=== PATIENT | female | born 1955 | race Caucasian/White ===

== ENCOUNTER → 2017-10-23 13:44 | Outpatient (CLI) | payer OTHER, SELFPAY ==
[2017-10-23 15:20] LABS: Add Manual Diff / Slide Review NO; Basophils Percent Auto 0.9 % (0-2); Eosinophils Percent Auto 2.8 % (2-4); Hematocrit 38.3 % (36-46); Hemoglobin 12.9 g/dL (12.0-16.0); Lymphocytes Percent Auto 23.5 % (25-40); Mean Corpuscular HGB Conc 33.7 % (30-36); Mean Corpuscular Hemoglobin 28.5 PG (26-34); Mean Corpuscular Volume 84.4 fL (80-100); Monocytes Percent Auto 9.2 % (3-14); Neutrophils Absolute Auto 3900 /uL (3000-5900); Neutrophils Percent Auto 63.6 % (50-75); Platelet Count 307 X10^3/uL (150-400); Red Blood Cell Count 4.53 X10^6/uL (4.0-5.2); Red Cell Distribution Width 14.3 % (11.6-14.8); White Blood Cell Count 6.1 X10^3/uL (4.5-11.0)
[2017-10-23 15:32] LABS: Calcium 9.2 mg/dL (8.4-10.2); Estimated Glomerular Filt Rate > 60.0 mL/min (>60); Glucose 125 mg/dL (80-110); HEMOLYSIS 29 (0-50); Hemoglobin A1C% w Est Avg Glu 6.3 % (4.0-6.0); Potassium 4.2 mmol/L (3.4-5.1); Sodium 143 mmol/L (137-145)
[2017-10-23 15:41] LABS: Transferrin 225 mg/dL (206-381)
[2017-10-23 17:41] LABS: Appearance Urine UA CLOUDY; Bilirubin Urine UA NEGATIVE (NEGATIVE); Color Urine UA YELLOW; Glucose Urine UA NEGATIVE (NEGATIVE); Ketones Urine UA TRACE (NEGATIVE); Leukocyte Esterase Urine UA TRACE (NEGATIVE); Nitrite Urine UA NEGATIVE (NEGATIVE); Occult Blood Urine UA 1+ (NEGATIVE); Protein Urine UA NEGATIVE (NEGATIVE); Specific Gravity Urine UA 1.025 (1.000-1.035); Urobilinogen Urine UA 0.2 E.U./dL (0.2)
[2017-10-23 17:49] LABS: Bacteria Urine Many (>30); Mucus Urine 2+ (Negative); RBC Urine 5-10/HPF (0-5/HPF); Squamous Epithelial Cell Urine 10-30 /HPF; WBC Urine 10-30/HPF (0-5/HPF)
[2017-10-23 17:51] LABS: Culture Indicated Urine Cult Not Indicated; Urine Comments NOTE:
== END ==
PROVIDERS: PCP Nurse Practitioner Gerontology; Visit Provider Orthopaedic Surgery
DX: M25.561 Pain in right knee (principal); Z01.812 Encounter for preprocedural laboratory examination; R73.9 Hyperglycemia, unspecified; N39.0 Urinary tract infection, site not specified
CPT/HCPCS: 36415; 80048; 81001; 83036; 84466; 85025; 93005

== ENCOUNTER 2017-11-14 08:33 | Inpatient (IN) | payer OTHER, SELFPAY ==
[2017-10-25 13:35] VITALS: BMI 46.5
[2017-11-14] VITALS (15 sets, daily range): BP systolic 127–165; BP diastolic 65–90; PULSE 64–85; RESP 12–20; TEMP 35.7–37.1; O2SAT 90–98; BMI 46.4
[2017-11-14] MEDS: LACTATED RINGERS 1,000 ML 42 ML IV (09:20)
--- NOTE | 2017-11-14 10:14 | PM.PREOP ---
Pre-operative Note Interval Note Pre-op Check: History & Physical Reviewed by Physician and Changes
--- NOTE | 2017-11-14 10:14 | PM.OP.1 ---
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 Non-operative management has failed and the patient has requested total knee replacement. The risks, benefits and alternatives to surgery were discussed with the patient prior to proceeding. Risks discussed included, but were not limited to, failure to relieve pain, stiffness, infection, nerve damage, deep venous thrombosis, pulmonary embolism, stroke, coma, heart attack, permanent paralysis and , as well as the potential need for eventual revision of the prosthetic. Surgeon: Aren Lama Engineering Manager Electronics: Lissett Calles Anesthesia Type: General and Local Operative Notes Findings: Severe osteoarthritis of the lateral and patellofemoral joints. The prosthetics appeared well fixed. Closure Type: primary Specimen(s): none sent Implants & Drains: Implants used in this procedure were manufactured by the [employer] and [employer] and included the BCS II Journey total knee replacement with a size 6 Oxinium BCS II femur, a size 5 journey non porous tibial base plate, a 12 mm cross-linked polyethylene BCS II tibial insert and a 35 mm Padmini II oval patellar component. Applied: implant(s) Estimated Blood Loss (mL): 100 Blood products transfused: none Tourniquet time (min): 72 Procedure in detail: The patient was seen in the pre-operative area, where the patient identified the right knee as the operative site and this was marked with my initials. The patient received pre-operative antibiotics, and was taken to the operating room and placed on the operative table in the supine position. After satisfactory anesthesia, a methods time analyst out was performed. The right leg was encircled with a tourniquet about the proximal thigh, and the leg was prepared from the toes to the tourniquet with ChloroPrep in the usual fashion and draped through sterile drapes. The leg was elevated and exsanguinated with Eschmark bandage and the tourniquet inflated to 250 mmHg pressure. The knee was approached through an approximately 18 cm incision that included the previous scar and carried into the knee through a medial parapatellar arthrotomy. The anterior osteophytes and soft tissues were removed. The rotational landmarks of Hui's line and the transepicondylar axis were marked on the femur with electrocautery, and intramedullary guide holes for the femur and tibia were created. The distal femoral cut was made in 6 degrees of valgus using the intramedullary guide at the primary cut setting. This was accomplished by placing the guide pins prior to removal of the femoral prosthetic, removing the prosthetic and then making the cut. The proximal tibial cut was then made using the intramedullary guide, taking a skim cut from the surface left after removal of the tibial prosthetic. The anterior, posterior and chamfer cuts were then made. The posterior osteophytes and soft tissues were then removed. The posterior capsule was injected with part of a mixture of 50 ml 0.25% Marcaine mixed with 20 ml Exparel and 4 mg of morphine for post-operative pain control. The remainder of this mixture was injected into the capsule and subcutaneous tissues during cement curing. The tibia was prepared with the rotation set by an extra medullary guide. Trial tibial and femoral components were then placed and the intercondylar notch cut through the femoral trial. Range of motion was 0-130 degrees, with good stability throughout the range. The patella was then cut to accommodate the patellar prosthetic. There was no need for a lateral release. The trials were then removed. The bone was prepared with pulsatile lavage, and dried with a sponge. Cement was applied and the final prosthetics placed. Excess cement was removed during and after cement curing. After confirming there was no extruded cement posteriorly, the final tibial insert was placed. The knee was copiously irrigated and the tourniquet deflated. Hemostasis was obtained. The capsule was closed with interrupted # 2 polyester suture. The subcutaneous layer was closed with 3-0 Vicryl, and the skin with a running 3-0 V-Lock suture and SteriStrips. An Aquacel Ag dressing was applied and the patient was taken to recovery having tolerated the procedure well. Complications: none Condition: stable Disposition: PACU Plan for aftercare: The patient will be maintained on a standard total knee replacement protocol with weight bearing as tolerated. The patient will receive aspirin and sequential compression devices for DVT prophylaxis. The patient will be discharged home when safe for the home environment.
[2017-11-14] MEDS: MIDAZOLAM 2 MG/2 ML VIAL IV (10:45)
--- NOTE | 2017-11-14 10:47 | SUR.PREOP ---
After SURINDER Frausto spoke with pt, Midazolam given to pt. per Dr Herbert's instruction, pt then taken to OR by SURINDER Frausto
[2017-11-14] MEDS: CEFAZOLIN 2 GM/100 ML FROZ.PIGGY IV ×2 (10:50→20:00)
--- NOTE | 2017-11-14 11:39 | SUR.OPER ---
Supine on padded OR bed, head on pillow, arms secured on padded arm boards at <90 degrees abduction, legs uncrossed, safety belt at waste, tape over blanket over lower legs and hips.
[2017-11-14] MEDS: BUPIVACAINE 0.25% W/ EPI 50 ML VIAL INJ (11:44)
[2017-11-14] MEDS: BUPIVACAINE LIPOSOME 266 MG/20 ML VIAL INJ (11:44)
[2017-11-14] MEDS: MORPHINE 4 MG/ML INJ IV (11:45)
--- NOTE | 2017-11-14 13:09 | DI.RAD.S_ITS ---
PROCEDURE: XR KNEE RT 1TO2V INDICATIONS: 62 year-old female status post right knee arthroplasty. TECHNIQUE: 2 postoperative view(s) of the knee acquired. COMPARISON: None available. FINDINGS: Bones: Patient is status post knee joint arthroplasty. Hardware components are in expected positions. Visualized bony structures are intact. Soft tissues: Overlying postoperative changes are noted, including intra-articular fluid and gas. IMPRESSION: Status post right knee arthroplasty, with hardware components in expected positions. Dictated by: Jayce Kate M.D. on 11/14/2017 at 14:01 Approved by: Jayce Kate M.D. on 11/14/2017 at 14:01
[2017-11-14] MEDS: HYDROMORPHONE 2 MG INJ 0.25 MG IV ×2 (14:04→14:17)
[2017-11-14] MEDS: INSULIN REGULAR 100 UNIT/ML 3 ML VIAL SUBCUT (14:15)
[2017-11-14] MEDS: ONDANSETRON 4 MG ODT PO (16:00)
[2017-11-14] MEDS: OXYCODONE/ACETAMINOPHEN 5/325 TABLET 1 TAB PO ×2 (16:39→20:35)
[2017-11-14] MEDS: LACTATED RINGERS 1,000 ML 100 ML IV (16:40)
--- NOTE | 2017-11-14 17:54 | PC.NURSE ---
Pt arrived from PACU in stable post op condition. 96% RA. IV infusing into the RFA as per orders w/o incidence. Stewart wrap & aquacell dsg CDI. Assisted to BSc w/two assist and FWW. Pt oriented to room and call system. Call light w/in reach.
[2017-11-14] MEDS: ASPIRIN EC 81 MG TABLET PO (20:35)
[2017-11-15] MEDS: LACTATED RINGERS 1,000 ML 100 ML IV (01:48)
[2017-11-15] MEDS: OXYCODONE/ACETAMINOPHEN 5/325 TABLET 1 TAB PO ×4 (01:51→21:44)
[2017-11-15] MEDS: CEFAZOLIN 2 GM/100 ML FROZ.PIGGY IV (02:00)
[2017-11-15 06:09] LABS: Hemoglobin 11.9 g/dL (12.0-16.0)
[2017-11-15 06:40] VITALS: BP 138/69; PULSE 87; RESP 16; TEMP 36.9; O2SAT 93
[2017-11-15 07:48] VITALS: BP 143/77; PULSE 88; RESP 16; TEMP 37.1; O2SAT 94
[2017-11-15] MEDS: MELOXICAM 7.5 MG TABLET 15 MG PO (08:01)
[2017-11-15] MEDS: LOSARTAN 50 MG TABLET PO (08:01)
[2017-11-15] MEDS: ASPIRIN EC 81 MG TABLET PO ×2 (08:01→20:23)
[2017-11-15] MEDS: DOCUSATE 100 MG CAPSULE PO ×2 (08:01→20:22)
--- NOTE | 2017-11-15 08:22 | PM.PNPO.1 ---
Subjective Date Patient Seen: 11/15/17 Time Patient Seen: 08:23 Interval history: POD #1 status post right total knee arthroplasty with Dr. Lama. Her pain is well controlled with oxycodone, Tylenol, and meloxicam. She is taking aspirin for DVT prophylaxis. She has not been up with physical therapy yet. She had complaints of nausea yesterday but this has resolved. She has been getting up and using the commode. She has her physical therapy appointment set up in [place]. Her plan will be to DC home with her sister, and 2 sons. Exam Vital Signs (past 8 hours): Vital Signs - 8 hr 11/15/17 06:40 11/15/17 07:48 Temperature 98.4 F 98.7 F Pulse Rate 87 88 Respiratory Rate 16 16 Blood Pressure 138/69 H 143/77 H Pulse Oximetry 93 94 Pulse Oximetry 94 Oxygen Delivery Method Nasal Cannula Oxygen Flow Rate 2 Narrative Exam Narrative: Patient lying in bed in no acute distress. She is alert and oriented x3. Dressing on right knee is CDI, and leanne wrap in place. Calves are soft, compressible, and nontender bilaterally. Sensation intact to light touch throughout bilateral lower extremities. Pulses are symmetrical. She is able to actively dorsiflex and plantar flex. Objective Labs Result Diagrams: 11/15/17 05:55 Labs: Laboratory Results - last 24 hr 11/15/17 05:55 Hgb 11.9 L Hct 36.0 Assessment & Plan Post-op (1) Knee osteoarthritis: Current Visit: Yes Status: Acute (2) S/P total knee arthroplasty: Current Visit: Yes Status: Acute Postoperative Procedures Operation Date: 11/14/17 10:45 Actual Procedures Side Surgeon p Uni Knee Revision to Total Knee Arthroplasty Revision Right Aren Lama MD POD #1 status post right total knee arthroplasty with Dr. Lama. She has not been up ambulating with PT yet. She will get up and ambulate with PT today. She has outpatient physical therapy set up. Her sister and 2 sons will be staying with her. Pain is well controlled with oxycodone, Tylenol, and meloxicam. Continue ASA for DVT prophylaxis. Plan is possible discharge this afternoon if she is mobilizing safely, and continued pain control. Time Spent With Patient less than 15 minutes Quality VTE Deep Vein Thrombosis/Pulmonary Embolism Present on Admission: No
[2017-11-15 12:03] VITALS: BP 144/73; PULSE 85; RESP 16; TEMP 37.1; O2SAT 95
--- NOTE | 2017-11-15 12:18 | PT.IIE ---
Current Diagnoses Bilateral primary osteoarthritis of knee (11/14/17) Unilateral primary osteoarthritis, unspecified knee (11/14/17) Presence of right artificial knee joint (11/14/17) Presence of left artificial knee joint (11/14/17) Presence of unspecified artificial knee joint (11/14/17) Surgery Performed Operation Date: 11/14/17 10:45 Actual Procedures p Uni Knee Revision to Total Knee Arthroplasty Revision(Right) - Aren Lmaa MD Surgical History (Last Reviewed 11/14/17 @ 16:52 by Rubin Burciaga, PT, [place]) H/O umbilical hernia repair (Acute) History of cataract surgery (Acute) History of total knee arthroplasty (Acute) Personal history of spine surgery (Acute) Medical History (Last Reviewed 11/14/17 @ 16:52 by Rubin Burciaga, PT, [place]) Diabetes mellitus (Acute) Heartburn (Acute) History of prosthetic unicompartmental arthroplasty of right knee (Acute) Hypertension (Acute) Impairment of balance (Acute) Osteoarthritis of both hips (Acute) Osteoarthritis of both knees (Acute) Pain (Acute) Postmenopausal (Acute) Scoliosis (Acute) Physical Therapy Inpatient Evaluation/Re-Eval M1 PT/OT-IP Prior Functional Status Start: 11/14/17 17:13 Freq: NEEDED Status: Active Protocol: Document 11/15/17 12:06 AB (Rec: 11/15/17 12:18 AB [id number]) Medical Review Prior Functional Status Medical History Reviewed Yes Mobility and Gait pt stated that she is modified independent with all mobilities and ambulation using SPC Social History Household Members children Living Arrangements House Number of Floors (Floors) One Floor Number of Stairs To Enter/Railing? 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 Additional Social History Comment pt works in the kitchen in [email or web address] M2 PT-IP Current Condition Start: 11/14/17 17:13 Freq: NEEDED Status: Active Protocol: Document 11/15/17 12:06 AB (Rec: 11/15/17 12:18 AB [id number]) Physical Therapy Current Condition Current Condition Evaluation Date 11/15/17 Treatment Diagnosis s/p R TKA Onset Date 11/14/17 Weight Bearing Status Weight Bearing Status Weight Bear as Tolerated M3 PT-IP Subjective Start: 11/14/17 17:13 Freq: NEEDED Status: Active Protocol: Document 11/15/17 12:06 AB (Rec: 11/15/17 12:18 AB [id number]) Subjective Physical Therapy Visit Type Type Initial Evaluation Visit Start Time 10:08 Visit Stop Time 10:42 Total Visit Minutes 34 Number of FRUIT RANCHER Visits 0 Physical Therapy Visit Comments Patient Comments i don't think i can stand up Therapy Pain Assessment Pain When Pain Assessed At Rest Pain Present Pain Present Pain Reported Location Right Knee Intensity 4 Scale Used Numeric (1 - 10) Pain Management Techniques Timing of Activity with Medications M4 PT-IP Mobility and Gait Start: 11/14/17 17:13 Freq: NEEDED Status: Active Protocol: Document 11/15/17 12:06 AB (Rec: 11/15/17 12:18 AB [id number]) PT-Bed Mobility Assessment Supine to Sit Supine to Sit Maximum Assistance Scooting Scooting to Edge of Bed Maximum Assistance PT-Transfer Assessment Sit to and From Stand Sit to and from Stand Maximum Assistance Equipment Transfer Assistive Device Gait Belt Front Wheeled Walker Orthotic/Prosthetic Devices or Brace: No Transfers Transfer Destination Chair Transfer Technique Stand Step Pivot Transfer Ability Level of Assist Moderate Assistance Gait Assessment Gait Gait Assistance Required: Moderate Assistance Distance (Feet) (feet) 12 Able to Maintain Weight Bearing Status Yes During Gait Assistive Devices Assistive Device Gait Belt Front Wheeled Walker Gait Deviations General Gait Pattern Antalgic Decreased Stride Length Decreased Feet Clearance Factors Limiting Gait Function Factors Limiting Gait Function Decreased Activity Tolerance Decreased Strength Pain Poor Balance Poor Safety Awareness PT-Balance Assessment Sitting Balance and Reactions Static Sitting Balance Ability Good Dynamic Sitting Balance Ability Good Standing Balance and Reactions Static Standing Balance Ability Fair Dynamic Standing Balance Ability Poor M5 PT-IP Objective Assessments Start: 11/14/17 17:13 Freq: NEEDED Status: Active Protocol: Document 11/15/17 12:06 AB (Rec: 11/15/17 12:18 AB [id number]) Orientation Orientation/Cognition Level of Alertness Alert Orientation Name Age Birthday Month Date Year Day of Week Place Situation Safety Awareness Understands Safety Issues Gross Range of Motion Lower Extremity ROM Assessment Right Impaired Strength Lower Extremity Strength Assessment Bilaterally Impaired Knee R quads: 3-/5 M6 PT-IP Treatment Start: 11/14/17 17:13 Freq: NEEDED Status: Active Protocol: Document 11/15/17 12:06 AB (Rec: 11/15/17 12:18 AB [id number]) Physical Therapy Treatment Education Education Provided Precautions Weight Bearing Status Post-Op Packet Safety M7 PT-IP Assessment and Plan Start: 11/14/17 17:13 Freq: NEEDED Status: Active Protocol: Document 11/15/17 12:06 AB (Rec: 11/15/17 12:18 AB [id number]) PT Summary Assessment and Plan Potential Rehabilitation Potential Fair Status of Condition at Evaluation Evolving Summary Impairments Pain ROM Strength Balance Coordination Sensation Bed Mobility Transfers Gait Activity Tolerance Assessment Summary Pt requiring mod to max A with mobility at this time. pt will likely progress during hospital stay. will conduct caregiver training and stair training when appropriate. Goals Bed Mobility Goal Standby Assistance Transfer Goal Standby Assistance Gait Goal Standby Assistance Gait Distance 100 Other Goals up/down 2 step using fWW Days to Meet Goals 3 Frequency of Treatment Frequency Of Treatment Twice a Day Treatment Plan Physical Therapy Treatment Plan Bed Mobility Training Transfer Training Gait Training Therapeutic Exercise Balance Retraining Post Op Education Discharge Planning Hot or Cold Pack Neuromuscular Re-ed Coordination Retraining Manual Therapy Other Recommendations and Next Treatment bed mobility, sit<>stand, Focus ambulation, stair climbing Recommendations To Nursing Amount of Assist Needed 1 Person Assist Discharge Recommendations PT Discharge Recommendations Home with Assistance Outpatient PT Equipment Needed for Home Before FWW: pt will ask her friend to Discharge get her one Provider Visit Care Team Role Provider Type DAREN Ignacio Primary Care Provider Non-Staff Specialty: Medical Aren Lama MD Admit Provider Physician Attending Provider Specialty: Orthopedic Surgery
--- NOTE | 2017-11-15 12:24 | PC.NURSE ---
Pt is A&ox3. She was given 1 Percocet and states that her pain level down to a 2/10. She is groggy this morning but easily arousable. R.knee dressing is aquacel with leanne wrap applied over top. CMS wnl and ppx2. Pt has feeling to leg from hip down to feet. Slight 1+ edema to r. extremity. Pt is a one person assist with P.T. She is doing well with ambulation when moving and using walker, but having more of a problem getting up out of bed to the walker. VSS, blood sugar this morning 180s. Pt ate well at breakfast s any nausea. Sitting up in chair, now visiting with her sister. Noon- Pts blood sugar 126 at lunch time. Pt sitting up in chair comfortably and states that she has minimal pain and will be ready for more percocet around 1300.
--- NOTE | 2017-11-15 15:00 | CM.DANOTE ---
DCP: assessment: Case received, EMR reviewed and met with pt. Introduced self and role. She was just finishing her second PT session with Jenni and agreed to have most of the discussion re her d/c plan go to her sister Audrey, at bedside. Pt is a 62 year old feamle who admitted yesterday for a planned R TKA revision. Surgeon: Dr. Kelby Odonnell: Cameron Cline DCP template completed with the information currently available at this time. Pt's sister is here from [place] and will stay until Monday. She is in process of looking for a FWW at places in [place] that offer borrowed dme (list provided by therapy dept). Thus far she has not found one...pt confirms she would like one from the therapy consignment closet if she does not have one by tomorrow. Jenni also notes pt would beneft from an OT eval if order can be obtained from ortho team to better support pt's plan for home. Agreed to follow up in morning iwth rounding ortho re walker and OT. P: at this point PT notes pt is making progress toward goal for home d/c but does need assist. Will be following
[2017-11-15 15:30] VITALS: BP 134/57; PULSE 88; RESP 16; TEMP 37.7; O2SAT 94
--- NOTE | 2017-11-15 18:47 | PC.NURSE ---
Pt c/o pain 1-07/29, refusing the need for additional pain meds, stating the 1 PRN percocet is working just fine. Stewart wrap and aquacel CDI, CMS intact, +PPs, encouraged ankle waves while pt OOB in chair. 94% RA, denies SOB, encouraged use of I.S. and performed pt teaching on how to use the I.S., pt verbalized and demonstrated understanding. Denies nausea and flatus, BT's hypoactive. Calling appropriately and making needs known to staff. Call light in reach.
[2017-11-15 20:05] VITALS: BP 136/60; PULSE 97; RESP 16; TEMP 37.4; O2SAT 94
[2017-11-15] MEDS: SODIUM CHLORIDE 0.9% FLUSH 10 ML IV (21:45)
[2017-11-16 00:30] VITALS: BP 140/61; PULSE 102; RESP 20; TEMP 37.7; O2SAT 94
[2017-11-16] MEDS: hydrOXYzine pamoate 25 MG CAPSULE PO (00:48)
[2017-11-16 01:25] VITALS: TEMP 37.4
[2017-11-16 05:15] VITALS: BP 121/63; PULSE 86; RESP 16; TEMP 37.2; O2SAT 92
--- NOTE | 2017-11-16 07:36 | PM.DS.1 ---
History of Present Illness Chief complaint: revision total rt knee arthroplasty 91994 Narrative: Yesenia Stout is a 62 year old female . Pain is [id number]. Denies fever chills. Ambulating in his room yesterday with physical therapy. She has 1 small step into her home. She has family home to assist her. Patient feels ready to be discharged home today. Discharge Providers Date of admission: 11/14/17 08:33 Primary care physician: DAREN Ignacio Consults: 11/14/17 16:14 Consult to Discharge Planning Routine Comment: Consult to Physical Therapy Evaluate & Treat Comment: Physician Instructions: postop TKA protocol Discharge provider: Terry Tirado PA-C Summary Discharge Diagnosis: Status post right total knee arthroplasty. Hospital Course: Patient admitted to the hospital for failed right unicompartment arthroplasty. Patient consented for revision of failed right unicompartment arthroplasty to right total knee arthroplasty. Patient taken to the operating room underwent above-mentioned procedure. Patient back in her room recovering well and is in stable condition. Status at Discharge Functional status at discharge: uses cane/walker Overall status at discharge: patient is progressing back to baseline Time Spent with Patient Less than 30 minutes Exam Vital Signs (past 8 hours): Vital Signs - 8 hr 11/16/17 00:30 11/16/17 01:25 11/16/17 05:15 Temperature 99.8 F H 99.3 F 99.0 F Pulse Rate 102 H 86 Respiratory Rate 20 16 Blood Pressure 140/61 H 121/63 H Pulse Oximetry 94 92 Pulse Oximetry 92 Oxygen Delivery Method Room Air Oxygen Flow Rate 0 Narrative Exam Narrative: 62-year-old female resting comfortably in bed in no apparent distress. Right knee dressing is clean, dry and intact. Neurovascular status is intact to the right distal lower extremity. Objective Labs Result Diagrams: 11/15/17 05:55 Discharge Plan Discharge Plan Patient Disposition: Home, Self-Care Discharge comment: DC home today after PT Patient already has meds for home use. She will continue aspirin, Tylenol, Mobic, oxycodone, Vistaril. Discharge Med Rec/Prescriptions Prescriptions: New aspirin 81 mg Tablet,Delayed Release (Dr/Ec) 81 mg PO BID Qty: 60 RF: 0 hydroxyzine pamoate 25 mg Capsule 25 mg PO Q6HR PRN (Reason: Nausea) Qty: 30 RF: 0 Continue losartan 50 mg Tablet 50 mg PO DAILY RF: 0 meloxicam 15 mg Tablet 15 mg PO DAILY RF: 0 cholecalciferol (vitamin D3) [Vitamin D3] 1,000 unit Capsule 1,000 unit PO DAILY RF: 0 acetaminophen [Tylenol Arthritis Pain] 650 mg Tablet Extended Release 1,300 mg PO BID PRN (Reason: pain) RF: 0 glucosamine HCl 1,500 mg Tablet 3,000 mg PO DAILY RF: 0 Follow up/Referrals: Jennifer Jane ARNP [Primary Care Provider] - Aren Lama MD [Physician] - (SNO in 5-7 days) Provider Discharge Instructions Diet: Diet as Tolerated Activity: Weightbearing as tolerated, ankle pumps, heel slides Wound Care Report to your healthcare provider any signs of infection, such as:: chills, fever, increased pain and unusual drainage Dressing: The dressing in place until follow-up appointment in 2 weeks Visit Report/Discharge Packet Visit Report Forms: Stroke Signs & Symptoms Discharge Data Primary Care Provider: Jennifer Jane Attending Provider: Aren Lama Admit Date/Time: 11/14/17 08:33 Quality VTE Deep Vein Thrombosis/Pulmonary Embolism Present on Admission: No
--- NOTE | 2017-11-16 07:41 | P.DS_ITS ---
History of Present Illness Chief complaint: revision total rt knee arthroplasty 60640 Narrative: Yesenia Stout is a 62 year old female . Pain is mild-to- moderate. Denies fever chills. Ambulating in his room yesterday with physical therapy. She has 1 small step into her home. She has family home to assist her. Patient feels ready to be discharged home today. Discharge Providers Date of admission: 11/14/17 08:33 Primary care physician: DAREN Ignacio Consults: 11/14/17 16:14 Consult to Discharge Planning Routine Comment: Consult to Physical Therapy Evaluate & Treat Comment: Physician Instructions: postop TKA protocol Discharge provider: Terry Tirado PA-C Summary Discharge Diagnosis: Status post right total knee arthroplasty. Hospital Course: Patient admitted to the hospital for failed right unicompartment arthroplasty. Patient consented for revision of failed right unicompartment arthroplasty to right total knee arthroplasty. Patient taken to the operating room underwent above-mentioned procedure. Patient back in her room recovering well and is in stable condition. Status at Discharge Functional status at discharge: uses cane/walker Overall status at discharge: patient is progressing back to baseline Time Spent with Patient Less than 30 minutes Exam Vital Signs (past 8 hours): Vital Signs - 8 hr 3 11/16/17 00:30 11/16/17 01:25 11/16/17 05:15 Temperature 99.8 F H 99.3 F 99.0 F Pulse Rate 102 H 86 Respiratory Rate 20 16 Blood Pressure 140/61 H 121/63 H Pulse Oximetry 94 92 Pulse Oximetry 92 Oxygen Delivery Method Room Air Oxygen Flow Rate 0 Narrative Exam Narrative: 62-year-old female resting comfortably in bed in no apparent distress. Right knee dressing is clean, dry and intact. Neurovascular status is intact to the right distal lower extremity. Objective Labs Result Diagrams: 11/15/17 05:55 Discharge Plan Discharge Plan Patient Disposition: Home, Self-Care Discharge comment: DC home today after PT Patient already has meds for home use. She will continue aspirin, Tylenol, Mobic, oxycodone, Vistaril. Discharge Med Rec/Prescriptions Prescriptions: New aspirin 81 mg Tablet,Delayed Release (Dr/Ec) 81 mg PO BID Qty: 60 RF: 0 hydroxyzine pamoate 25 mg Capsule 25 mg PO Q6HR PRN (Reason: Nausea) Qty: 30 RF: 0 Continue losartan 50 mg Tablet 50 mg PO DAILY RF: 0 meloxicam 15 mg Tablet 15 mg PO DAILY RF: 0 cholecalciferol (vitamin D3) [Vitamin D3] 1,000 unit Capsule 1,000 unit PO DAILY RF: 0 acetaminophen [Tylenol Arthritis Pain] 650 mg Tablet Extended Release 1,300 mg PO BID PRN (Reason: pain) RF: 0 glucosamine HCl 1,500 mg Tablet 3,000 mg PO DAILY RF: 0 Follow up/Referrals: Jennifer Jane ARNP [Primary Care Provider] - Aren Lama MD [Physician] - (SNO in 5-7 days) Provider Discharge Instructions Diet: Diet as Tolerated Activity: Weightbearing as tolerated, ankle pumps, heel slides Wound Care Report to your healthcare provider any signs of infection, such as:: chills, fever, increased pain and unusual drainage Dressing: The dressing in place until follow-up appointment in 2 weeks Visit Report/Discharge Packet Visit Report Forms: Stroke Signs & Symptoms Discharge Data Primary Care Provider: Jennifer Jane Attending Provider: Aren Lama Admit Date/Time: 11/14/17 08:33 Quality VTE Deep Vein Thrombosis/Pulmonary Embolism Present on Admission: No
--- NOTE | 2017-11-16 08:26 | CM.DPC ---
DCP: continued: katherine Tirado was here this morning and has d/c'd pt to home today. Spoke with katherine lopez ? OT prior to d/c. She agrees this will be helpful and is ordering same. Checked in with pt. She confirms she is comfortable with the d/c to home today. Her sister was able to obtain a FWW and is bringing it with her this morning to hospital. She will be taking pt home after therapy tx today. P: home, today, outpt PT and family support.
[2017-11-16 08:30] VITALS: BP 134/68; PULSE 91; RESP 16; TEMP 37.5; O2SAT 97
[2017-11-16] MEDS: OXYCODONE/ACETAMINOPHEN 5/325 TABLET 1 TAB PO ×2 (08:45→12:43)
[2017-11-16] MEDS: DOCUSATE 100 MG CAPSULE PO (08:46)
[2017-11-16] MEDS: ASPIRIN EC 81 MG TABLET PO (08:46)
[2017-11-16] MEDS: LOSARTAN 50 MG TABLET PO (08:47)
[2017-11-16] MEDS: MELOXICAM 7.5 MG TABLET 15 MG PO (08:47)
[2017-11-16] MEDS: SODIUM CHLORIDE 0.9% FLUSH 10 ML IV (08:47)
[2017-11-16 09:30] VITALS: TEMP 37.5
--- NOTE | 2017-11-16 11:50 | PT.IPTN ---
Current Diagnoses Bilateral primary osteoarthritis of knee (11/14/17) Unilateral primary osteoarthritis, unspecified knee (11/14/17) Presence of right artificial knee joint (11/14/17) Presence of left artificial knee joint (11/14/17) Presence of unspecified artificial knee joint (11/14/17) Surgery Performed Operation Date: 11/14/17 10:45 Actual Procedures p Uni Knee Revision to Total Knee Arthroplasty Revision(Right) - Aren Lama MD Physical Therapy Treatment Note M2 PT-IP Current Condition Start: 11/14/17 17:13 Freq: NEEDED Status: Active Protocol: Document 11/15/17 12:06 AB (Rec: 11/15/17 12:18 AB [id number]) Physical Therapy Current Condition Current Condition Evaluation Date 11/15/17 Treatment Diagnosis s/p R TKA Onset Date 11/14/17 Weight Bearing Status Weight Bearing Status Weight Bear as Tolerated M3 PT-IP Subjective Start: 11/14/17 17:13 Freq: NEEDED Status: Active Protocol: Document 11/16/17 10:45 GGD (Rec: 11/16/17 11:49 GGD [id number]) Subjective Physical Therapy Visit Type Type Treatment Note Visit Start Time 10:15 Visit Stop Time 10:45 Total Visit Minutes 30 Number of FELT HANGER Visits 1 Physical Therapy Visit Comments Patient Comments Pt states she feels ready to go home. Therapy Pain Assessment Pain When Pain Assessed At Rest Pain Present Pain Present Pain Reported Location Right Knee Intensity 3 Scale Used Numeric (1 - 10) Pain Management Techniques Timing of Activity with Medications M4 PT-IP Mobility and Gait Start: 11/14/17 17:13 Freq: NEEDED Status: Active Protocol: Document 11/16/17 10:45 GGD (Rec: 11/16/17 11:49 GGD [id number]) PT-Transfer Assessment Sit to and From Stand Sit to and from Stand Minimal Assistance Equipment Transfer Assistive Device Gait Belt Front Wheeled Walker Transfers Transfer Destination Chair Toilet Transfer Ability Level of Assist Contact Guard Assistance Minimal Assistance Use of Upper Extremities Gait Assessment Gait Gait Assistance Required: Contact Guard Assist Distance (Feet) (feet) 60 Assistive Devices Assistive Device Gait Belt Front Wheeled Walker Orthotic/Prosthetic Devices or Brace: No Gait Deviations General Gait Pattern Antalgic Decreased Stride Length Decreased Feet Clearance Step-to Gait Factors Limiting Gait Function Factors Limiting Gait Function Decreased Activity Tolerance Decreased Strength Limited Range of Motion Pain Poor Balance Poor Safety Awareness M5 PT-IP Objective Assessments Start: 11/14/17 17:13 Freq: NEEDED Status: Active Protocol: Document 11/15/17 12:06 AB (Rec: 11/15/17 12:18 AB [id number]) Orientation Orientation/Cognition Level of Alertness Alert Orientation Name Age Birthday Month Date Year Day of Week Place Situation Safety Awareness Understands Safety Issues Gross Range of Motion Lower Extremity ROM Assessment Right Impaired Strength Lower Extremity Strength Assessment Bilaterally Impaired Knee R quads: 3-/5 M6 PT-IP Treatment Start: 11/14/17 17:13 Freq: NEEDED Status: Active Protocol: Document 11/16/17 10:45 GGD (Rec: 11/16/17 11:49 GGD [id number]) Physical Therapy Treatment Exercises Exercises Ankle Pumps Quad Sets Seated Knee Flexion/Extension M7 PT-IP Assessment and Plan Start: 11/14/17 17:13 Freq: NEEDED Status: Active Protocol: Document 11/16/17 10:45 GGD (Rec: 11/16/17 11:49 GGD [id number]) PT Summary Assessment and Plan Summary Assessment Summary Pt improving with mobility. She improved with ambulation. She did need assist for sit to stand from toilet. Frequency of Treatment Frequency Of Treatment Twice a Day Treatment Plan Other Recommendations and Next Treatment bed mobility, sit<>stand, Focus ambulation Recommendations To Nursing Amount of Assist Needed 1 Person Assist Discharge Recommendations PT Discharge Recommendations Home with Assistance Outpatient PT Equipment Needed for Home Before She does have a FWW. Discharge
--- NOTE | 2017-11-16 12:08 | OT.IP.EVAL ---
Current Diagnoses Bilateral primary osteoarthritis of knee (11/14/17) Unilateral primary osteoarthritis, unspecified knee (11/14/17) Presence of right artificial knee joint (11/14/17) Presence of left artificial knee joint (11/14/17) Presence of unspecified artificial knee joint (11/14/17) Surgery Performed Operation Date: 11/14/17 10:45 Actual Procedures p Uni Knee Revision to Total Knee Arthroplasty Revision(Right) - Aren Lama MD Past Medical History (Last Reviewed 11/14/17 @ 16:52 by Rubin Burciaga, PT, [place]) Diabetes mellitus (Acute) Heartburn (Acute) History of prosthetic unicompartmental arthroplasty of right knee (Acute) Hypertension (Acute) Impairment of balance (Acute) Osteoarthritis of both hips (Acute) Osteoarthritis of both knees (Acute) Pain (Acute) Postmenopausal (Acute) Scoliosis (Acute) Surgical History (Last Reviewed 11/14/17 @ 16:52 by Rubin Burciaga, PT, [place]) H/O umbilical hernia repair (Acute) History of cataract surgery (Acute) History of total knee arthroplasty (Acute) Personal history of spine surgery (Acute) Occupational Therapy Inpatient Evaluation/Re-Eval M1 PT/OT-IP Prior Functional Status Start: 11/14/17 17:13 Freq: NEEDED Status: Active Protocol: Document 11/16/17 11:51 [facility] (Rec: 11/16/17 12:06 [facility] [id number]) Medical Review Prior Functional Status Medical History Reviewed Yes Diet/Fluid Consistency Regular Mobility and Gait pt stated that she is modified independent with all mobilities and ambulation using SPC Social History Household Members children Living Arrangements House Home Environment Walk in Shower Home Equipment Front Wheel Walker Hand Held Shower Grab Bars In Shower M2 OT-IP Current Condition Start: 11/16/17 11:50 Freq: Status: Active Protocol: Document 11/16/17 11:51 [facility] (Rec: 11/16/17 12:06 [facility] [id number]) Occupational Therapy Current Condition Current Condition Evaluation Date 11/16/17 Treatment Diagnosis Right UNi knee revision to R TKA Weight Bearing Status Weight Bearing Status Weight Bear as Tolerated M3 OT- IP Subjective and Pain Start: 11/16/17 11:50 Freq: Status: Active Protocol: Document 11/16/17 11:51 [facility] (Rec: 11/16/17 12:06 [facility] [id number]) OT- Subjective Occupational Therapy Visit Type Type Initial Evaluation Visit Start Time 11:15 Visit Stop Time 11:35 Total Visit Minutes 20 Occupational Therapy Visit Comments Patient/Caregiver Goals Pt feels ready to go home. OT Pain Assessment Pain When Pain Assessed At Rest Pain Present Pain Present Denied Pain M4 OT- IP ADL's Start: 11/16/17 11:50 Freq: Status: Active Protocol: Document 11/16/17 11:51 [facility] (Rec: 11/16/17 12:06 [facility] [id number]) OT ADL-Dressing General Eval Upper Body Dressing Ability Standby Assistance Lower Body Dressing Ability Minimal Assistance Areas Needing Assistance Retrieving/Set-up of Clothing Socks Shoes Comments OT Dressing Comments Pt states just wears slippers at home and able to reach down low to deangelo underwear and pants. Pt needing assist with heel of shoes up. Educated on AED that hydrography teacher maybe beneficial for pt. M6 OT- IP Functional Cognition Start: 11/16/17 11:50 Freq: Status: Active Protocol: Document 11/16/17 11:51 [facility] (Rec: 11/16/17 12:06 [facility] [id number]) Cognitive Factors Limiting Selfcare Function Cognitive Ability Level of Alertness Alert Patient Orientation Name Month Date Year Place Situation Attention Span Ability Capable of Focused Attention Capable of Sustained Attention Ability to Follow Commands Able to Follow Multi-Step Commands Memory Description No Deficits Noted Safety Awareness No Deficits Noted OT- Vision and Hearing OT- Hearing Assessment OT- Hearing Assessment WFL M7 OT- IP Mobility and Balance Start: 11/16/17 11:50 Freq: Status: Active Protocol: Document 11/16/17 11:51 [facility] (Rec: 11/16/17 12:06 [facility] [id number]) OT-Transfer Assessment Sit to and From Stand Sit to and from Stand Minimal Assistance Comments Mobility Comments IRISH to stand and states to sleep in the reclienr intially . OT- Balance Assessment Sitting Balance and Reactions Static Sitting Balance Ability Normal Dynamic Sitting Balance Ability Normal Standing Balance and Reactions Static Standing Balance Ability Fair Dynamic Standing Balance Ability Poor M8 OT- IP Objective Assessments Start: 11/16/17 11:50 Freq: Status: Active Protocol: Document 11/16/17 11:51 [facility] (Rec: 11/16/17 12:06 [facility] [id number]) OT Gross Range of Motion Upper Extremity Range of Motion Assessment Within Functional Limits OT Strength Upper Extremity Strength Assessment Within Functional Limits M9 OT- IP Assessment and Plan Start: 11/16/17 11:50 Freq: Status: Active Protocol: Document 11/16/17 11:51 [facility] (Rec: 11/16/17 12:06 [facility] [id number]) OT Summary Assessment and Plan Potential Rehabilitation Potential Good Analytic Complexity at Evaluation Low Summary OT Impairments Pain Balance Functional Mobility Dressing Bathing Shower Transfers Progress Towards Goals Progressing Toward Goals Assessment Summary Pt has decreased balance, activity tolerance, and overall strength and to benefit from outpt PT. Pt's sister to be with her at home upon discharge. Goals Dressing Goal Standby Assistance Patient/Caregiver Education Goal Caregiver Independent Assisting Patient Frequency of Treatment Frequency Of Treatment Once a Day Treatment Plan OT Treatment Plan Patient/Family Education Discharge Planning Discharge Recommendations OT Discharge Recommendations Home with Assistance Outpatient PT
--- NOTE | 2017-11-16 12:08 | OT.IP.EVAL ---
Current Diagnoses Bilateral primary osteoarthritis of knee (11/14/17) Unilateral primary osteoarthritis, unspecified knee (11/14/17) Presence of right artificial knee joint (11/14/17) Presence of left artificial knee joint (11/14/17) Presence of unspecified artificial knee joint (11/14/17) Surgery Performed Operation Date: 11/14/17 10:45 Actual Procedures p Uni Knee Revision to Total Knee Arthroplasty Revision(Right) - Aren Lama MD Past Medical History (Last Reviewed 11/14/17 @ 16:52 by Rubin Burciaga, PT, [place]) Diabetes mellitus (Acute) Heartburn (Acute) History of prosthetic unicompartmental arthroplasty of right knee (Acute) Hypertension (Acute) Impairment of balance (Acute) Osteoarthritis of both hips (Acute) Osteoarthritis of both knees (Acute) Pain (Acute) Postmenopausal (Acute) Scoliosis (Acute) Surgical History (Last Reviewed 11/14/17 @ 16:52 by Rubin Burciaga, PT, [place]) H/O umbilical hernia repair (Acute) History of cataract surgery (Acute) History of total knee arthroplasty (Acute) Personal history of spine surgery (Acute) Occupational Therapy Inpatient Evaluation/Re-Eval M1 PT/OT-IP Prior Functional Status Start: 11/14/17 17:13 Freq: NEEDED Status: Active Protocol: Document 11/16/17 11:51 [facility] (Rec: 11/16/17 12:06 [facility] [id number]) Medical Review Prior Functional Status Medical History Reviewed Yes Diet/Fluid Consistency Regular Mobility and Gait pt stated that she is modified independent with all mobilities and ambulation using SPC Social History Household Members children Living Arrangements House Home Environment Walk in Shower Home Equipment Front Wheel Walker Hand Held Shower Grab Bars In Shower M2 OT-IP Current Condition Start: 11/16/17 11:50 Freq: Status: Active Protocol: Document 11/16/17 11:51 [facility] (Rec: 11/16/17 12:06 [facility] [id number]) Occupational Therapy Current Condition Current Condition Evaluation Date 11/16/17 Treatment Diagnosis Right UNi knee revision to R TKA Weight Bearing Status Weight Bearing Status Weight Bear as Tolerated M3 OT- IP Subjective and Pain Start: 11/16/17 11:50 Freq: Status: Active Protocol: Document 11/16/17 11:51 [facility] (Rec: 11/16/17 12:06 [facility] [id number]) OT- Subjective Occupational Therapy Visit Type Type Initial Evaluation Visit Start Time 11:15 Visit Stop Time 11:35 Total Visit Minutes 20 Occupational Therapy Visit Comments Patient/Caregiver Goals Pt feels ready to go home. OT Pain Assessment Pain When Pain Assessed At Rest Pain Present Pain Present Denied Pain M4 OT- IP ADL's Start: 11/16/17 11:50 Freq: Status: Active Protocol: Document 11/16/17 11:51 [facility] (Rec: 11/16/17 12:06 [facility] [id number]) OT ADL-Dressing General Eval Upper Body Dressing Ability Standby Assistance Lower Body Dressing Ability Minimal Assistance Areas Needing Assistance Retrieving/Set-up of Clothing Socks Shoes Comments OT Dressing Comments Pt states just wears slippers at home and able to reach down low to deangelo underwear and pants. Pt needing assist with heel of shoes up. Educated on AED that mechanics handyman maybe beneficial for pt. M6 OT- IP Functional Cognition Start: 11/16/17 11:50 Freq: Status: Active Protocol: Document 11/16/17 11:51 [facility] (Rec: 11/16/17 12:06 [facility] [id number]) Cognitive Factors Limiting Selfcare Function Cognitive Ability Level of Alertness Alert Patient Orientation Name Month Date Year Place Situation Attention Span Ability Capable of Focused Attention Capable of Sustained Attention Ability to Follow Commands Able to Follow Multi-Step Commands Memory Description No Deficits Noted Safety Awareness No Deficits Noted OT- Vision and Hearing OT- Hearing Assessment OT- Hearing Assessment WFL M7 OT- IP Mobility and Balance Start: 11/16/17 11:50 Freq: Status: Active Protocol: Document 11/16/17 11:51 [facility] (Rec: 11/16/17 12:06 [facility] [id number]) OT-Transfer Assessment Sit to and From Stand Sit to and from Stand Minimal Assistance Comments Mobility Comments IRISH to stand and states to sleep in the reclienr intially . OT- Balance Assessment Sitting Balance and Reactions Static Sitting Balance Ability Normal Dynamic Sitting Balance Ability Normal Standing Balance and Reactions Static Standing Balance Ability Fair Dynamic Standing Balance Ability Poor M8 OT- IP Objective Assessments Start: 11/16/17 11:50 Freq: Status: Active Protocol: Document 11/16/17 11:51 [facility] (Rec: 11/16/17 12:06 [facility] [id number]) OT Gross Range of Motion Upper Extremity Range of Motion Assessment Within Functional Limits OT Strength Upper Extremity Strength Assessment Within Functional Limits M9 OT- IP Assessment and Plan Start: 11/16/17 11:50 Freq: Status: Active Protocol: Document 11/16/17 11:51 [facility] (Rec: 11/16/17 12:06 [facility] [id number]) OT Summary Assessment and Plan Potential Rehabilitation Potential Good Analytic Complexity at Evaluation Low Summary OT Impairments Pain Balance Functional Mobility Dressing Bathing Shower Transfers Progress Towards Goals Progressing Toward Goals Assessment Summary Pt has decreased balance, activity tolerance, and overall strength and to benefit from outpt PT. Pt's sister to be with her at home upon discharge. Goals Dressing Goal Standby Assistance Patient/Caregiver Education Goal Caregiver Independent Assisting Patient Frequency of Treatment Frequency Of Treatment Once a Day Treatment Plan OT Treatment Plan Patient/Family Education Discharge Planning Discharge Recommendations OT Discharge Recommendations Home with Assistance Outpatient PT
[2017-11-16 12:45] VITALS: BP 124/88; PULSE 94; RESP 18; TEMP 37.1; O2SAT 96
== END 2017-11-16 13:30 | disposition home or self-care (01) | DRG 467 ==
PROVIDERS: Admitting Provider Orthopaedic Surgery; PCP Nurse Practitioner Gerontology; Visit Provider Orthopaedic Surgery
PROC: 0SRC0J9 Replacement of Right Knee Joint with Synthetic Substitute, Cemented, Open Approach (ICD-10-PCS; principal; 2017-11-14 10:45)
DX: M17.11 Unilateral primary osteoarthritis, right knee (principal); Z68.41 Body mass index [BMI] 40.0-44.9, adult; I10 Essential (primary) hypertension; M81.0 Age-related osteoporosis without current pathological fracture; E11.9 Type 2 diabetes mellitus without complications; Z87.891 Personal history of nicotine dependence; Z96.652 Presence of left artificial knee joint; E66.01 Morbid (severe) obesity due to excess calories; M41.9 Scoliosis, unspecified
CPT/HCPCS: 36415; 36592; 73560; 82962; 85014; 85018; 97116; 97162; 97165; 97530; C1776; C9290; J0690; J1170; J2250; J2270; J2405; J2704; J2765; J3010